=== PATIENT | male | born 2000 | race Two or more races ===

== ENCOUNTER 2024-03-21 18:03 | Emergency (ER) | payer MEDICAID, OTHER ==
[~2024-03-21] VITALS: Ht 165.1 cm; Wt 100.0 kg
[2024-03-21] MEDS: KETOROLAC TROMETH 60MG/2ML VIAL IM ONE (18:53)
[2024-03-21] MEDS: HYDROcodone-ACET 10/325MG TAB PO ONE (18:53)
[2024-03-21 19:00] VITALS: BP 145/79; PULSE 98; RESP 18; TEMP 99.2; O2SAT 96
[2024-03-21] MEDS ORDERED: IBUP-1455 PO (19:30)
[2024-03-21] MEDS ORDERED: HYDR-4902 PO (19:30)
== END 2024-03-21 19:41 | disposition home or self-care (01) ==
LOC: ER 18:03
DX: S52.92XA Unspecified fracture of left forearm, initial encounter for closed fracture (principal); S52.292A Other fracture of shaft of left ulna, initial encounter for closed fracture; V89.2XXA Person injured in unspecified motor-vehicle accident, traffic, initial encounter; Y93.89 Activity, other specified; Y92.89 Other specified places as the place of occurrence of the external cause; Y99.8 Other external cause status
CPT/HCPCS: 29125; 73090; 96372; 99283; J1885